=== PATIENT | male | born 1930 | race Caucasian/White ===

== ENCOUNTER 2018-11-01 15:50 | Inpatient (IN) | payer OTHER, BC ==
[~2018-11-01] VITALS: Ht 182.9 cm; Wt 78.9 kg
[2018-11-01 15:51] VITALS: BP 147/72
[2018-11-01 16:04] LABS: URINE BILIRUBIN NEGATIVE (Negative); URINE BLOOD NEGATIVE (Negative); URINE CLARITY CLEAR; URINE COLOR YELLOW; URINE GLUCOSE-RANDOM* NEGATIVE (Negative); URINE KETONES NEGATIVE (Negative); URINE LEUKOCYTES-REFLEX NEGATIVE (Negative); URINE NITRITE-REFLEX NEGATIVE (Negative); URINE PROTEIN (DIPSTICK) NEGATIVE (Negative); URINE SPECIFIC GRAVITY <= 1.005 (1.005-1.035); URINE UROBILINOGEN 0.2 E.U./dl (0.2-1.0)
[2018-11-01 16:12] LABS: ABSOLUTE NEUTROPHILS 5.1 thou/uL (1.4-8.2); BASOPHILS 0.5 % (0.0-2.0); EOSINOPHILS 2.3 % (0.0-3.0); HEMATOCRIT 24.1 % (42.0-52.0); HEMOGLOBIN 7.9 gm/dL (14.0-18.0); LYMPHOCYTES 21.4 % (24.0-44.0); MCH 34.7 pg (26.0-34.0); MCHC 32.6 g/dL (28.0-37.0); MCV 106.4 fL (80.0-100.0); MONOCYTES 10.6 % (1.0-8.0); PLATELET COUNT 369 thou/uL (150-400); POLYS 65.2 % (36.0-66.0); RBC 2.27 mil/uL (4.50-6.00); RDW 16.4 % (10.5-14.5); WBC 7.8 thou/uL (4.0-11.0)
[2018-11-01 16:20] LABS: CALCIUM 8.7 mg/dL (8.5-10.1); CREATININE 1.1 mg/dL (0.7-1.3); POTASSIUM 4.3 mmol/L (3.5-5.1)
[2018-11-01 16:26] LABS: ALBUMIN 2.9 g/dL (3.4-5.0); TOTAL BILIRUBIN 1.1 mg/dL (<0.1-1.0); TOTAL PROTEIN 6.2 g/dL (6.4-8.2)
[2018-11-01 19:51] LABS: HEMATOCRIT 21.4 % (42.0-52.0); HEMOGLOBIN 7.2 gm/dL (14.0-18.0)
[2018-11-01 20:19] VITALS: BP 99/54
[2018-11-01 20:28] VITALS: BP 147/72
[2018-11-01 21:21] VITALS: BP 111/61
[2018-11-01 21:36] VITALS: BP 105/42; BP 114/63
[2018-11-01 22:18] LABS: TSH 3.887 uIU/mL (0.358-3.740)
[2018-11-01] MEDS ORDERED: LANTUS100 UNIT/M SUBQ (22:20)
[2018-11-01] MEDS ORDERED: TRADJENTA5 MG PO (22:21)
[2018-11-01] MEDS ORDERED: NAMENDA 5 MG TAB5 M1 PO (22:22)
[2018-11-01] MEDS ORDERED: SYNTHROID112 MC1 PO (23:10)
[2018-11-01] MEDS ORDERED: VITAMIN D2000 UNIT PO (23:11)
[2018-11-01] MEDS ORDERED: QUETIAPINE FUM100 MG PO (23:12)
[2018-11-02 06:04] LABS: HEMATOCRIT 25.9 % (42.0-52.0); HEMOGLOBIN 8.7 gm/dL (14.0-18.0); MCH 33.9 pg (26.0-34.0); MCHC 33.4 g/dL (28.0-37.0); MCV 101.7 fL (80.0-100.0); RBC 2.55 mil/uL (4.50-6.00); RDW 19.4 % (10.5-14.5); WBC 6.6 thou/uL (4.0-11.0)
[2018-11-02 06:16] LABS: CALCIUM 8.6 mg/dL (8.5-10.1); CREATININE 0.9 mg/dL (0.7-1.3); POTASSIUM 3.9 mmol/L (3.5-5.1)
--- NOTE | 2018-11-02 08:29 | NUR ---
PROGRESS PT AGITSTED AND HITTING STAFF, INCONTINENT OF URINE AND BOWEL CLEANED WITHOUT DIFFICULTY. IVF'S INFUSING ORDERED, TELE INTACT, PT KEEPS REMOVING LEADS, FALL PRECAUTIONS IN PLACE UP WITH ASSIST ONLY CONTINUE POC.
[2018-11-02 08:30] VITALS: BP 107/74
[2018-11-02 10:06] LABS: GLYCOHEMOGLOBIN (HGB A1C) 5.4 % (4.8-5.6)
[2018-11-02 16:15] VITALS: BP 128/65
--- NOTE | 2018-11-02 18:51 | NUR ---
ASSUMED CARE OF PT AT APPROX 0700. PT IS ALERT, NOT ORIENTED, COMBATIVE, AND HARD TO REDIRECT. PT HAS SITTER IN ROOM FOR SAFETY. MONITORED ON TELE ALTHOUGH PT CONITUES TO PULL TELE OFF VERY OFTEN. CALLED DOCTOR TO ASK FOR DC OF TELE. RECIEVED ORDER FOR TELE DC. ASSESMENT CHARTED. PT LEFT UNIT FOR GI PROCEDURE, PULLED IV OUT AND GI REPLACED IV IN GI LAB. RETURN TO ROOM ALERT, VSS. FAMILY HAS BEEN UPDATED ON POC. PT WAS ABLE TO EAT IN EVENING AND TOLERATED VERY WELL. MAKING SLOW PROGRESS TOWARDS POC GOALS. WILL CONT TO MONITOR.
[2018-11-02 20:10] VITALS: BP 148/75
--- NOTE | 2018-11-03 02:26 | NUR ---
care assumed at 1900 patient was in bed agitated, kicking staff and cursing family members. patient has a sitter d/t fall risk and impulsive behaviour. prn haldol given per order. patient sleeping on and off this shift, no agitation at this time. patient incontinent pericare and barrier cream applied as needed. no s/s of pain or discomfort. bruise noted on left hand. patient in bed asleep at this time breathing regular and unlaboured.
[2018-11-03 03:33] VITALS: BP 129/79
[2018-11-03 05:39] LABS: % SATURATION 33 % (20-39); IRON 61 ug/dL (65-175); TIBC 184 ug/dL (250-450)
[2018-11-03 08:02] VITALS: BP 124/86
[2018-11-03 10:11] LABS: HEMOGLOBIN 8.7 gm/dL (14.0-18.0)
[2018-11-03] MEDS ORDERED: PROTONIX40 M1 PO (13:58)
[2018-11-03] MEDS ORDERED: NOVOLOG100 UNIT/1 SUBQ (13:58)
--- NOTE | 2018-11-03 14:04 | NUR ---
PT ADMITTED RELATED TO WEAKNESS AND ANEMIA. CM REVIEWED CHART AND SPOKE WITH CARE TEAM. CM CALLED PT'S SON/DPOA AND LEFT A VOICMAIL. BASED ON RECORD REVIEW PT RESIDES IN A HOUSE WITH HIS WITH 24/7 CAREGIVERS. CHART INDICATED THAT PT IS BASICALLY BED/CHAIR BOUND. CHART INDICATED THAT PT IS MAX ASSIST FOR TRANSFERS AND IS TOTAL ASSIST FOR ADLS. PLAN IS FOR PT TO GO TO [facility]. IT IS ANTIPATED THAT PT PT WILL BE MEDICALLY STABLE TO DC THERE THIS DAY. CM TO FOLLOWAS INDICATED WITH DC PLANNING.
--- NOTE | 2018-11-03 14:06 | PATH ---
[facility] [address] [place] [address] PATHOLOGY RPT PROCEDURE Name: SATHISHBILLIE Room #: 451-P ADM IN M.R.#: [id number] ������������������ Admission: 11/01/18 ������������������ Date of : [birth year]03/[birth year] Discharge: Report #: [id number] Path Case #: [id number] [facility] Accession Number: [id number] . 01 Material submitted: . stomach - BX OF ANTRUM R/O H. PYLORI . 01 Clinical history: . Pre-OP DX: GI bleed Post-OP DX: Gastritis, duodenal bulb ulcer . 02 Diagnosis: Gastric mucosa, antrum R/O H. pylori, endoscopic biopsy: - Mild chronic inflammation. - Negative for intestinal metaplasia or atrophy. - Negative for Helicobacter pylori (properly controlled immunohistochemical stain performed). . (IUV:tanvir; 11/03/2018) QMS/11/03/2018 . 02 Electronically signed: . Shannan Hutchinson MD, Pathologist NPI- [id number] . 01 Gross description: . Received in formalin labeled "Billie Wolf, BX antrum, rule out H. pylori," are 2 segments of cuevas soft tissue measuring 0.9 x 0.3 x 0.2 cm in aggregate dimensions and ranging from 0.4 to 0.5 cm in maximum dimension. The specimen is submitted entirely in cassette A1. (TSD; 11/02/2018) TOB/TOB . 02 Pathologist provided ICD-10: K29.50 . 02 CPT . 021002, Q28690 Specimen Comment: A courtesy copy of this report has been sent to Specimen Comment: [phone], . Specimen Comment: Report sent to / DR GONZALES Performed at: [address] [id number] MD Lawrence Jenkins MD Phone: [phone] Performed at: [address] [address] PATHOLOGY RPT PROCEDURE Name: BILLIE WOLF Room #: 451-P ADM IN M.R.#: [id number] ������������������ Admission: 11/01/18 ������������������ Date of : [birth year]/03/[birth year] Discharge: Report #: [id number] Path Case #: [id number] [address] [place] [id number] MD Shannan Hutchinson MD Phone: [phone]
[2018-11-03 15:08] VITALS: BP 110/72
--- NOTE | 2018-11-03 18:27 | NUR ---
ASSUMED CARE OF PT AT APPROX 0700. PT IS ALERT, NOT ORIENTED. VSS, DENIES PAIN AND IS ABLE TO MAINTAIN 02 SAT >90 ON RA. PT IS COMBATIVE AT TIMES SITTER IS IN ROOM WITH PATIENT. FAMILY HAS BEEN UPDATED ON DISCHARGE OF PT TO [facility] AND ARE IN AGREEMENT WITH NO FURTHER CONCERNS AT THIS TIME. REPORT CALLED TO RONNIE ON 5S. PT TRANSPORTED IN BED. PT HAS MET POC OF DC TO APPROPRIATE LEVEL OF CARE.
== END 2018-11-03 16:00 | DRG 377 ==
LOC: ER 15:50 → 4W 18:51 → EROBS 18:51 → 4W 20:30
PROVIDERS: Internal Medicine Gastroenterology; Nurse Practitioner; Physician Assistant; Student in an Organized Health Care Education/Training Program; ADMIT Internal Medicine
PROC: 30233N1 Transfusion of Nonautologous Red Blood Cells into Peripheral Vein, Percutaneous Approach (ICD-10-PCS; principal; 2018-11-01)
PROC: 0DB68ZX Excision of Stomach, Via Natural or Artificial Opening Endoscopic, Diagnostic (ICD-10-PCS; 2018-11-02)
DX: K29.71 Gastritis, unspecified, with bleeding (principal); R53.2 Functional quadriplegia; D62 Acute posthemorrhagic anemia; F03.91 Unspecified dementia, unspecified severity, with behavioral disturbance; K26.9 Duodenal ulcer, unspecified as acute or chronic, without hemorrhage or perforation; E11.9 Type 2 diabetes mellitus without complications; E03.9 Hypothyroidism, unspecified; Z79.899 Other long term (current) drug therapy
CPT/HCPCS: 10045; 10047; 62110; 62900; 70005

== ENCOUNTER 2018-11-03 14:32 | Inpatient (IN) | payer OTHER, BC ==
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
[~2018-11-03 14:32] MED LIST: LANTUS100 UNIT/M SUBQ; NAMENDA 5 MG TAB5 M1 PO; NOVOLOG100 UNIT/1 SUBQ; PROTONIX40 M1 PO; QUETIAPINE FUM100 MG PO; SYNTHROID112 MC1 PO; TRADJENTA5 MG PO; VITAMIN D2000 UNIT PO
[2018-11-03 17:33] VITALS: BP 124/77
--- NOTE | 2018-11-03 17:45 | NUR ---
PATIENT ADMITTED FROM , ORDERS DR. HERRERA, FOR CONFUSION, DEPRESSION. TRANSPORTED BY 4W SITTER ACCOMPANYING PATIENT. HISTORY OF LEWEY BODY DEMENTIA, HYPOTHROIDISM FOLLOWING A THYROIDECTOMY, HISTORY OF FALLS. ORIENTED ONLY TO SELF. PATIENT'S SON, PRAVIN, IS DPOA. ARRIVED AT THIS TIME TO SIGN PATIENT IN FOR TREATMENT.
--- NOTE | 2018-11-03 19:51 | NUR ---
PATIENT'S SON, PRAVIN BOWER, CONTACTED BY PHONE, WHO CONFIRMED VERBALLY TO THIS NURSE AND Tamanna LI, THAT HIS FATHER, BLILIE BOWER, IS A DO NOT RESUSICATE. HE IS UNABLE TO BRING IN PAPERWORK UNTIL TOMORROW.
--- NOTE | 2018-11-03 20:11 | NUR ---
ASSUMED CARE OF PT @ 19:15. IN ROOM IN BED WITH ONE ON ONE SITTER. HRRR, LUNGS CTA ALL HERNANDEZ, ABD NORMOACTIVE. ORIENTED TO SELF ONLY. SITTER REPORTS HE HAS BEEN CURSING. WILL CONTINUE TO MONITOR.
--- NOTE | 2018-11-03 21:39 | NUR ---
TOOK 2100 MEDS WITH HUDSON. WEARING A BRIEF, BUT PULLS IT BACK AND URINATES ON HIS BED. COMBATITIVE WITH STAFF INCONTINENT CARE PROVIDED. ONE ON ONE CARE CONTINUES.
--- NOTE | 2018-11-04 00:19 | NUR ---
NEW ORDER FOR LINAGLIPTIN 5 MG @0900, CODE STATUS: NO CODE, BLOOD GLUCOSE MONITOR AC/HS.
--- NOTE | 2018-11-04 06:37 | NUR ---
slept 0 hours noc.
[2018-11-04 07:00] VITALS: BP 118/77
--- NOTE | 2018-11-04 09:37 | NUR ---
ASSUMED CARE OF PT APPROX 0715, SITTER PRESENT, PT AT FIRST COMBATIVE AND HITTING OUT, WITH HELP OF THREE OTHERS PT CLEANED UP AND DRESSED, CHANGED, RASH NOTED ON INNER GROIN BETWEEN LEGS, APPLIED COPIOUS AMOUNTS OF BARRIER CREAM, WILL GIVE PHYSICIAN INFO TO SEE IF FURTHER ORDERS NEEDED. BECAME VERY PLEASANT AFTER SET UP IN W/C, REFUSED MEDS THEN ALLOWED ONE IN HIS APPLESAUCE. MENTIONED WANTING COOKIES AND TO WATCH TELEVISION. WILL CONTINUE TO MONITOR
--- NOTE | 2018-11-04 13:32 | NUR ---
pt becoming agitated, and trying to get up out of his chair, another rn pulled off the floor w/casino duty manager. assured pt we'd go back to his room after the return of his sitter after lunch. he is strong and he grabbed this nurses hand roughly. pulled away yet still close enough to keep safe
--- NOTE | 2018-11-04 20:01 | NUR ---
ASSUMED CARE @ 19:15. IN BED SITTER 1 ONE 1 AT BEDSIDE. AWAKE COOPERATED WITH ASSESSMENT. HRRR, LUNGS DIMINISHED, ABD NORMOACTIVE. WILL CONTINUE TO MONITOR.
--- NOTE | 2018-11-04 23:08 | H ---
[facility] [place] [address] HISTORY AND PHYSICAL Name: SATHISHBILLIE Room #: 525B-B ADM IN M.R.#: [id number] Admission: 11/03/18 ������������������ Attend Phys: Ky Newman DO Discharge: ������������������ Date of : [birth year]03/[birth year] Report #: [id number] THIS REPORT FOR: //name// CC: Ky Newman NO PCP DATE OF SERVICE: 11/03/2018 GERIATRIC PSYCHIATRY EVALUATION SOURCES: Emergency Room records as well as hospitalist's documentation from his medical admission, as well as a bedside interview with the patient today. 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 The patient has an existing major neurocognitive disorder. Apparently, the patient has been agitated, hitting his head, and is difficult to manage. I believe the patient's primary care physician is the OIL PROCESSING TECHNICIAN at [facility]. In any event, his son had been in touch with his primary care physician who referred him to the [facility] here at [place]. The patient had a recent medical admission at the end of September, which was for a hyperosmotic nonketotic syndrome, new-onset diabetes mellitus, and dehydration. The patient was successfully treated and his hemoglobin was 13.1 in [facility]. Unfortunately, he was actually brought to the ED for medical clearance for Geriatric Psychiatry, initial hemoglobin was 7.9, repeat was 7.2. Apparently, the son reported that the patient was incontinent of large stool last evening and he did feel it was very dark. The son reports no history of GI bleed; reports prior abdominal surgeries and cholecystectomy, in the past 2 years had a colonoscopy, polyps noted, but were not removed secondary to age and comorbid conditions. The patient was started on a Protonix drip, 2 units of packed red blood cells had been ordered, and GI was consulted. The patient is alert only to himself. The patient has normal incontinence of bowel and bladder. The patient invariably feeds himself with total assistance for ADLs. The patient underwent an EGD, I believe, yesterday by Dr. Bravo. There was a single nonbleeding duodenal bulb ulcer size 5 mm without a visible vessel. There is prepyloric erythema, biopsy agrees with pathology, specks of coffee-ground in the stomach would suggest blood, normal esophagus. Recommended Protonix 40 mg daily for 8 weeks. Avoid aspirin, Aleve, ibuprofen, and NSAIDs. Diet as tolerated. REVIEW OF SYSTEMS: Not possible with this patient due to the severity of his dementia. SOCIAL HISTORY: Unlikely smoking tobacco or alcohol history. PHYSICAL EXAMINATION: Deferred to the hospitalist. [address] [address] HISTORY AND PHYSICAL Name: MARISA BOWERLIL Room #: 525B-B ADM IN M.R.#: [id number] Admission: 11/03/18 ������������������ Attend Phys: Ky Newman DO Discharge: ������������������ Date of : [birth year] Report #: [id number] PAST MEDICAL HISTORY: Includes type 2 diabetes mellitus, hypothyroidism, and functional quadriplegia. LABORATORY DATA: Most recent are: Hematology on 11/03/2018, H and H 8.7 and 26.0. White count on was 6.6. Platelet count 348. Chemistries on the showed sodium 139, potassium 3.9, chloride 105, bicarbonate 25, BUN 14, estimated GFR is 79, glucose 156. Hemoglobin A1c 5.4, calcium 8.6. Iron 61, TIBC 184, ferritin 557 which was high. The low iron and low TIBC are consistent with blood loss anemia. AST 29, ALT 22, alkaline phosphatase 117, total protein 6.2. Vitamin B12 high, albumin 2.9, vitamin D 33.4. Folate 17.7, TSH 3.887, which is slightly high, although not materially. Urinalysis was negative. No neuro imaging was done. PHYSICAL EXAMINATION: VITAL SIGNS TODAY: Temperature 35.7 Celsius, respirations 16, BP 124/77, O2 sat 99%. MUSCULOSKELETAL: Nonambulatory in bed. MENTAL STATUS: This is a well-developed, slightly disheveled male, in the hospital gown, slightly elevated in his bed. Attention impaired. Concentration impaired. Speech loud, nonsensical at times. Some psychomotor agitation, no psychomotor retardation. Thought process linear, limited. Thought content: The patient exhibited some echopraxia and then he did extend his middle finger to me. Did not have obvious external stimuli, but would not tolerate questioning. Insight limited. Judgment impaired. Fund of knowledge well below baseline. FORMULATION: An 88-year-old male admitted for major neurocognitive disorder with behaviors including resistance with care. PLAN: Evaluate, stabilize, and obtain collateral. MEDICATIONS: Currently will be given Protonix 40 mg p.o. daily, Tradjenta 5 mg p.o. daily for diabetes, levothyroxine 112 mcg p.o. daily, mirtazapine given at night 7.5 mg at 2100 for sleep and appetite. Depakote will be starting DR 250 mg p.o. b.i.d. ESTIMATED LENGTH OF STAY: 10-14 days. We will watch his GI status. Monitor for additional blood loss. I will continue one to one for now. STRENGTHS: He is insured. [facility] [address] [place] [address] HISTORY AND PHYSICAL Name: BILLIE BOWER Room #: 525B-B ADM IN M.R.#: [id number] Admission: 11/03/18 ������������������ Attend Phys: Ky Newman DO Discharge: ������������������ Date of : [birth year]/03/[birth year] Report #: [id number] WEAKNESSES: Advanced age, dementia, and multiple medical comorbidities. ��������������������������������������������� <ELECTRONICALLY SIGNED> ���������������������������������������� By: Ky Newman DO ��������������������������������������������� 11/04/18 2308 [id number] 0048 Ky Newman DO /nt
--- NOTE | 2018-11-05 05:16 | NUR ---
PROVIDED TRAZADONE 25 PO FOR SLEEP, AND 1 HOUR FOLLOW UP, PT STILL NOT SLEEPING SO 1 HOUR FOLLOW UP GIVEN. PT SLEPT SOME AND AWOKENED SOME THROUGHOUT THE NOC.
--- NOTE | 2018-11-05 06:26 | NUR ---
SLEPT 1.6 HOURS.
--- NOTE | 2018-11-05 06:29 | NUR ---
WOUND ON POSTERIOR LEFT HAND IS C/D/I. BANDAIDS ON R ARM COVERING SNALL SKIN ABRASIONS. REPLACED WITH FRESH BANDAIDS.
[2018-11-05 07:30] VITALS: BP 114/73
[2018-11-05 08:00] VITALS: BP 114/73
--- NOTE | 2018-11-05 08:40 | NUR ---
PT ASSISTED TO W/C THIS AM X2 STAFF. PT ABLE TO STAND ON HIS FEET WHEN PROMPT. PT LUNGS CLEAR, HEART BEAT IRREGULAR, PT CAN FEED SELF WITH ENCOURAGEMENT. PT DIDN'T WANT TO TAKE MEDS THIS AM. PLACED INTO APPLESAUCE. PT HAS SKIN TEAR TO TOP OF LEFT HAND. SON CAME THIS AM FOR 5 MIN. TOOK OFF HIS FREE STYLE GLUCOMETER TO LEFT UPPER ARM.
--- NOTE | 2018-11-05 09:45 | NUR ---
PT BACK TO BED WITH ASSIST X2 PERSONS. PT DIDN'T WANT TO BE TOUCHED WHEN IN BED. TRYING TO PUT CREAM TO PER-AREA. PT PUSHED NURSE ARM AWAY. PT STILL HAS 1:1.
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
--- NOTE | 2018-11-05 15:42 | NUR ---
PT TRYING TO STAND UP IN W/C AT TABLE. PT STATED HIS BACK HURTING. ATTEMPTED TO ADM TYLENOL AND VIT D CRUSHED IN YOGART. PT REFUSED TO TAKE EVEN WHEN TOLD IT WAS TYLENOL.
--- NOTE | 2018-11-05 16:24 | NUR ---
PT ALLOWED AUTOMATIC CHIEF TO TAKE BLOOD SUGAR FOR EVENING CHECK. PT STATING HE WOULD LIKE SOMEONE TO TAKE HIM TO THE LIBARY.
--- NOTE | 2018-11-05 17:30 | NUR ---
CHANGED DRESSING TO LEFT HAND. PT TOLERATED WELL, NO BEHAVIORS NOTED. CLEANED SKIN TEAR AND PLACED VASELINE GAUZE OVER SKIN TEAR AND COVERED WITH TEGADERM.
--- NOTE | 2018-11-05 17:40 | NUR ---
GOT PT BACK TO BED X2 ASSIST. PT WAS NOT COMBATIVE AT THIS TIME. PT HAD SMEAR OF BM, CLEANED UP AND PUT INTO BED. PT TOLERATED ACTIVITY.
[2018-11-05 19:45] VITALS: BP 117/29
--- NOTE | 2018-11-05 21:24 | NUR ---
ASSUMED CARE OF THE PT AT 191 PM. MAKES NEEDS KNOWN. TAKES HIS MEDICATION CRUSHED IN ICE CREAM. DENIES SI/HI, ANXIETY AND DEPRESSION, DENIES A/V HALLUNICATIONS. REMAINS ON 12 MINUTE CHECKS FOR HIS SAFETY.
--- NOTE | 2018-11-06 03:20 | NUR ---
THE PT TRIED TO CLIMB OUT OF BED X 1. ASSISTED BACK UP IN THE BED. DENIES PAIN AT THIS TIME. REMAINS ON 12 MINUTE CHECKS FOR HIS SAFETY.
[2018-11-06 08:00] VITALS: BP 108/60
--- NOTE | 2018-11-06 08:00 | NUR ---
GETTING PT UP OUT OF BED THIS AM X2 ASSIST. PT SLAPPING AND GRABBING AT STAFF. HAD TO HOLD DOWN HANDS IN ORDER TO HELP GET BRIEF ON. INCON OF URINE. PT STATED MIMI MOMMA. ENCOURAGED PT TO EAT BREAKFAST. PT UP TO W/C WITH GAIT BELT. PT ABLE TO STAND WITH STAND-BY ASSIST.
[2018-11-06 08:30] VITALS: BP 108/60
--- NOTE | 2018-11-06 11:25 | NUR ---
PT SITTING IN DINNING ROOM. PT HS BEEN TRYING TO GET UP OUT OF W/C. PT STATED HE NEEDED TO GO. PT SITTING STILL AT THIS TIME.
--- NOTE | 2018-11-06 15:25 | NUR ---
PT WAS INCON. OF STOOL IN BED. PT PHYSICAL HITTING NURSE AND PLATE MOUNTER. PT TRYING TO BITE WHILE GETTING CLEANED UP. PT STATED HE WILL HELP WITH SITTING UP AND HE PROMISED. PT DID STAND AND GET INTO W/C WITH SOME GUIDANCE.
--- NOTE | 2018-11-06 15:30 | NUR ---
NOTICED THAT PT HAD TAKEN OFF LEFT HAND BANDAGE.
--- NOTE | 2018-11-06 17:30 | NUR ---
SON PRAVIN CAME TO VISIT TODAY ASKING HOW HIS DAD HAS BEHAVIED TODAY. SON STATED THAT HE LOOKS LIKE HE HAS IMPROVED ON HIS AGGRESSION. ASKING IF PT IS GOING TO GO HOME WHEN HE DISCHARGED, SON STATED THAT HE WANTS HIM TO STAY HERE A BIT MORE SINCE HE IS DOING BETTER, STATES HE WOULD LIKE TO TAKE HIM HOME IF HE CAN.
[2018-11-06 20:14] VITALS: BP 90/57
[2018-11-07 00:45] VITALS: BP 90/57
--- NOTE | 2018-11-07 03:49 | NUR ---
ASSUMED CARE @ 19:15. UP IN W/C IN THE DAY ROOM. ALLOWED ASSESSMENT AND VS TO BE TAKEN. TOOK MEDS CRUSHED IN PUDDING, TRANSFERRED TO BED, INCONTINENT CARE PROVIDED, NYSTATIN APPLIED TO GROIN. RESTLESS IN BED. PUT FEET OUT OF THE BED OFTEN, RETURNED TO BED AND COVERED UP, THEN REPEATED. WILL CONTINUE 12 MINUTE ROUNDING FOR SAFETY.
--- NOTE | 2018-11-07 05:57 | NUR ---
SLEPT 4.6 HOURS NOC.
[2018-11-07 07:40] VITALS: BP 111/67
--- NOTE | 2018-11-07 10:28 | NUR ---
ASSUMED PATIENT CARE AT 0715. PATIENT IN BED, RIGHT-SIDE POSITION. ASSISTED UP WITH THIS NURSE AND TUNNEL HEADING INSPECTOR. PATIENT HIT HIS HAND, APPERENTLY ON SIDE OF W/C, WHILE BEING TRANFERRED TO W/C. NURSE CLEANSED WITH WOUND CLEANSER, STERI-STRIPS APPLIED TO SKIN TEAR. UP FOR BREAKFAST, ATE 50% OF MEAL. DID NOT REMAIN IN R.T. GROUP, WHEELED HIMSELF TO TABLE NEXT TO WINDOW. PATIENT CALLED THIS NURSE "MOM" DURING A.M. GOALS GROUP, ASKED NURSE TO STAY SEATED RIGHT BESIDE, HELD NURSE'S HAND FOR SEVERAL MINUTES. LAID DOWN IN BED AT THIS TIME FOR NAP BEFORE LUNCH.
[2018-11-07 19:34] VITALS: BP 96/62
--- NOTE | 2018-11-07 21:39 | NUR ---
ASSUMED CARE OF THE PT AT 1915PM. ALERT ET CONFUSED AT THIS TIME. THE PT TAKES HIS HS MEDICATIONS CRUSHED IN PUDDING, WHICH HE DID THIS EVENING. TRIED TO HIT AND PUNCH STAFF WHEN MOVING HIM UP IN THE BED. DENIES SI, HI, A/V HALLUNICATIONS. DENIES ANXITEY AND DEPRESSION. REMAINS ON 12 MINUTE CHECKS FOR HIS SAFETY.
--- NOTE | 2018-11-08 07:00 | NUR ---
the pt slept 10.0 hours last night.
[2018-11-08 08:00] VITALS: BP 121/67
--- NOTE | 2018-11-08 08:30 | NUR ---
PT UP TO / X2 STAFF. PT WAS HITTING AND BITTING AT STAFF. PT WAS INCON. OF URINE IN BED. PT LUNGS CLEAR. PT KEEP SAYING MOMMA NOVEMBER, AND GOOD NIGHT MOMMA. PT TOLERATED TRANSFER TO [facility], WAS HITTING WHILE SITTING IN /.
--- NOTE | 2018-11-08 17:13 | NUR ---
ALEJANDRA and Dr. Newman met with pt son Dr. Gonzáles concerning pt care and wellbeing. Eliecer stated that his father is needing more care at this time. Eliecer mention that he has being living off and on with the last 3 years with his parents. He mention that it starting to take effect on his home, and health. Dr. gonzáles mention that his mother is an skilled facility, and she does not want to live a [place]. However, he realized that his father is requiring more assistance. He asked if a referral can be sent to [facility]. ALEJANDRA sent a referral to Donna Birch on the fax number [phone]. ALEJANDRA will follow-up with the son October.
--- NOTE | 2018-11-08 17:29 | NUR ---
PT REFUSED TO HAVE BLOOD SUGAR TAKEN, KEPT PULLING ARM AWAY AFTER GETTING PRICKED WITH LANCET.
--- NOTE | 2018-11-08 17:45 | NUR ---
GOT FINGERSTICK, PT DIDN'T WANT THIS NURSE TO POKE WITH LANCET. FS 79, ENCOURAGED PT TO DRINK ENSURE DRINK.
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
[2018-11-08 20:04] VITALS: BP 101/57
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
--- NOTE | 2018-11-09 09:49 | NUR ---
ATE BREAKFAST IN DINNING ROOM. ORIENTED TO NAME ONLY. TOOK PILLS WHOLE WITH ENSURE. AT 100% OF MEAL AND FED SELF. IN WHEELCHAIR WITH LAP BELT ON FOR SAFETY. STAYED IN DINNING ROOM FOR AM GROUPS BUT DID NOT PARTICIIPATE.
[2018-11-09 19:33] VITALS: BP 107/70
--- NOTE | 2018-11-09 22:19 | NUR ---
NURSES NOTE - PATIENT IS IN BED UPON ASSESSMENT, EYES OPEN AND MAKING GOOD CONTACT WITH THIS NURSE. SPEECH WAS DIFFICULT AND MUFFLED AT TIMES TO UNDERSTAND RELATED TO PATIENT KEEP HIS MOUTH UNDERNEATH A BLANKET. HE APPEARS DISHEVELED AND THIS NURSE ENCOURAGED ADLS BUT PATIENT REFUSED. HE WAS ABLE TO DENY SI HI SH AND HALLUCINATIONS. PATIENT WOULD NOT FURTHER ELABORATE, BUT DID NOT APPEAR IN MEDICAL DISTRESS. PATIENT TOOK MEDICATION WITH YOGURT AND CRUSHED MEDS. HE DID NOT REPORT A LAST BM. DURING REASSESSMENT PATIENT WAS IN BED WITH EYES CLOSED, RR EVEN AND UNLABORED. WILL CONTINUE ROUNDS TO ENSURE SAFETY OF THE PATIENT AT ALL TIMES.
--- NOTE | 2018-11-10 01:15 | NUR ---
ASSUMED CARE AT 2300, PT HAS BEEN RESTING/SLEEPING SOUNDLY, ROUNDING DONE EVERY 12 MINUTES, MONITORED.
--- NOTE | 2018-11-10 04:58 | NUR ---
PT RESTED GOOD, AWAKE AT THIS TIME, HAD BM, STYLE ADVISOR ASSISTED IN CLEANING HIM, GIVEN AM MEDS AND TOOK THEM WITH NO ISSUES, WAS SWEET AT FIRST THEN TOLD THIS NURSE "GET OUT OF HERE", ABLE TO TURN/REPOSITION SELF, MONITORED.
--- NOTE | 2018-11-10 11:37 | NUR ---
Weekly Recreational Therapy Progress Note Date of Admission: 11/03/18 Date of Activity Therapy Assessment: 11/06/18 Activity Goal: Increase socialization Initial Goal: 1 Individual activity/day Weekly progress towards goal: Did not achieve goals Group participation level: Needs some assistance Behaviors observed: Pt has not participated in structured groups. Andrés has become combative with staff and at times reaches out for peers. Pt is also noted to disrobe in shared patient areas. Disoriented and unfocused when 1:1 attempts are made. Plan: No change towards goal
[2018-11-10 14:52] VITALS: BP 102/62
--- NOTE | 2018-11-10 17:54 | NUR ---
SPIT AM MEDICATIONS OUT AFTER SWALLOWING APPROX. 2 BITES OF CRUSHED AM MEDICATIONS MIXED WIRH PUDDING-COMBATIVE WITH CARES HITTING,ATTEMPTING TO BITE AND KICK NURSING STAFF. NOTED MOOD LABILITY. INCONTINENT OF STOOL X 4 THIS SHIFT-AND DISPLAYS SIGNIFICANT AGITATION AND COMBATIVENESS WITH BRIEF CHANGE AND PERINEAL CARE. APPETITE IS POOR- WILL TAKE SIPS OF FLUIDS WITH REPEATED APPROACHES AND PROMPTING.UP APPROX 2-3 HOURS THIS AM IN DAYROOM IS CONSTANTLY REMOVING CLOTHING-PUSHING AGAINST TABLE TIPPING WHEELCHAIR BACK YELLING OUT "MAMA NOVEMBER, MAMA NOVEMBER"DOES REST IN BED FOR LONG INTERVALS THIS PM AND REPORTS FEELING "TIRED" "LET ME SLEEP" TOOK PM MEDICATIONS WHOLE AFTER SEVERAL APPROACHES-ATTEMPTING TO BITE THIS NURSES FINGER WHEN PILLS PLACED IN MOUTH
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
--- NOTE | 2018-11-10 21:30 | NUR ---
ASSUMED CARE @ 19:15. IN BED AWAKE, ORIENTED TO SELF ONLY. RESPONDS TO SON'S NAME, CONFUSION AND AGITATION NOTED. ALLOWED THIS NURSE TO LISTEN TO LUNG (CTA) AND HEART SOUNDS HRRR. FOUGHT STAFF WHEN ATTEMPTED TO ASSESS B/P. TOOK 2100 MEDS IN ICE CREAM. REQUESTED AND DRANK WATER. INCONTINENT CARE GIVEN AND SHEETS CHANGED. WILL CONTINUE TO MONITOR.
[2018-11-11 03:29] VITALS: BP 102/62
--- NOTE | 2018-11-11 05:50 | NUR ---
Slept well, for a total of 9 hours.
[2018-11-11 07:55] VITALS: BP 130/83
--- NOTE | 2018-11-11 08:46 | NUR ---
PT IS ALERT TO SELF AND CHILDREN'S NAMES, REFUSED MEDS AT FIRST TILL I TOLD HIM HE WAS THE BOSS AND PUT IT IN PUDDING. HE TOOK THEM, REFUSED BG CHECK W/AIDE AND HELD HER HANDS VERY TIGHT. 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 REPORTS OF BM THROUGH THE NIGHT.
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
--- NOTE | 2018-11-11 19:40 | NUR ---
Assumed care @ 19:15. Assement complete. In bed, asked for water and to be covered up. Alert and oriented to self only. Hrrr, Lung sounds CTA, ABD normoactive. will continue to monitor.
[2018-11-11 21:14] VITALS: BP 133/61
--- NOTE | 2018-11-11 22:44 | NUR ---
PATIENTS OUT OF ROOM FOR WEATHER PROTOCOL. RETURNED TO BED AND TOPICAL CREAMS AND MEDICATIONS PROVIDED. INCONTINENT CARE PROVIDED. RESTING QUIETLY.
[2018-11-12 00:27] VITALS: BP 133/61
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
--- NOTE | 2018-11-12 06:42 | NUR ---
SLEPT 7 HOURS.
--- NOTE | 2018-11-12 09:39 | NUR ---
[id number]: Report rec from noc shift, care assumed. Sitting in w/c in DR, pleasant mood, oriented to name. Feeds self with set-up assistance and encouragement. Takes meds crushed in pudding, no difficulty, cooperative with this nurse. Lt hand dsg D/I, no edema or redness noted around site. Attended 09 therapy group, minimal participation due to cognitive impairment, remained calm during group.
[2018-11-12 19:57] VITALS: BP 138/64
--- NOTE | 2018-11-13 00:17 | NUR ---
ASSUMED CARE OF THE PT AT 1915PM. ALERT ET CONFUSED AT TIMES, IS ALWAYS CALLING OUT, STATED TO THIS RETAIL PERFORMANCE SPECIALIST, "HEKAUSHIK Schmidt." TAKES HIS MEDICATIONS CRUSHED IN APPLESAUCE. HE WAS LYING ON HIS LEFT SIDE WHEN THIS RETAIL PERFORMANCE SPECIALIST GAVE HIM HIS MEDICATIONS, WHICH HE TOOK ALL OF THEM. REMAINS ON 12 MINUTE CHECKS FOR HIS SAFETY.
--- NOTE | 2018-11-13 12:09 | NUR ---
ASSUMED PATIENT CARE AT 0700. PATIENT ASSISTED UP TO D.R. X 2 STAFF. REMAINS SOMEWHAT COMBATIVE WITH ADL'S. COMPLIANT WITH MEDS, CRUSHED AND IN APPLESAUCE. FLAT AFFECT, NO BEHAVIORS WITH NURSE, COOPERATIVE MOOD. SPOUSE AND OTHER SON (NOT PRAVIN) HERE FOR 10:45 VISITING HOUR. PATIENT VERY HAPPY WITH SPOUSE BEING AT HIS SIDE.
[2018-11-13 19:43] VITALS: BP 110/71
--- NOTE | 2018-11-13 20:03 | NUR ---
Received report from offgoing shift. Assumed care @ 19:15 in bed, allowed assessment to be complete without physical violence. Oriented to self only. Will assess q 12 minutes for patient safety.
[2018-11-13 23:15] VITALS: BP 110/71
--- NOTE | 2018-11-14 06:06 | NUR ---
Slept 7.2 hours.
[2018-11-14 07:30] VITALS: BP 130/70
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
[2018-11-14 08:20] VITALS: BP 130/70
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
--- NOTE | 2018-11-14 11:30 | NUR ---
HERE WITH SON. PT HAPPY TO SEE HIS . SHE HELPED CLEAN HIS NAILS.
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
--- NOTE | 2018-11-14 17:57 | NUR ---
ADM ZYPREXIA 5MG PO FOR AGGITATION. PT KEEPS SLIDING DOWN FROM CHAIR AND WANTING TO GO BACK TO BED, HITS NURSES.
[2018-11-14 19:40] VITALS: BP 105/48
--- NOTE | 2018-11-15 03:31 | NUR ---
ASSESSMENT: PT REMAIN ALERT AND ORIENT TIMES ONE, CONFUSED TO PLACE, TIME AND SITUATION. DOES TRY TO HIT AT STAFF MEMBERS., ENCOURAGED TO ASSIST WITH TURNS. VSS, AFEBRILE. NEEDS PROMPTS WITH TRANSFERS. INCONTINENT TO BOWEL AND BLADDER TIMES 3. TOLERATING PO INTAKE. REMAIN NO CODE PER ORDERS. FEET DRY, MOISTURIZER APPLIED. COMBATIVE WITH TAKING PILLS. SLOW PROGRESS TOWARDS DC GOALS. WILL CONTINUE TO MONITOR.
--- NOTE | 2018-11-15 06:45 | NUR ---
PT SLEPT FOR 1-1.5 HOURS STARTING AROUND 0530 THIS AM. DID NOT SLEEP WELL AT NIGHT.
--- NOTE | 2018-11-15 09:57 | NUR ---
ASSUMED CARE OF PT AT 0700. ASSESSMENT CHARTED. PT CONFUSED, DISORIENTED TO PLACE, SITUATION, AND TIME. RAMBLING SPEECH NOTED. PT SITTING IN WHEELCHAIR FOR BREAKFAST. PLEASANT UNTIL FSBS TAKEN, PT EXHIBITS TENSE, AGITATED BEHAVIOR. AM MEDS CRUSHED AND GIVEN ORDERED. ROOM AIR. DENIES PAIN. WILL CONTINUE TO MONITOR.
--- NOTE | 2018-11-15 16:36 | NUR ---
ALEJANDRA sent a referral to [facility]. ALEJANDRA will follow-up with the NF concerning if he will be accepted into the facility.
[2018-11-15 19:41] VITALS: BP 116/60
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
--- NOTE | 2018-11-16 06:39 | NUR ---
PATIENT SLEPT 2.4 HOURS OF SLEEP PER MARKETING DESIGNER
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
[2018-11-16 10:56] VITALS: BP 113/74
--- NOTE | 2018-11-16 16:54 | NUR ---
Pt was assessed by Roshan paula [place] to see if he will be appropriate for the [facility].
[2018-11-16 20:37] VITALS: BP 138/58
--- NOTE | 2018-11-17 02:37 | NUR ---
PT RESTED GOOD, EPISODE OF INCONTINENCE, PERICARE PROVIDED, BED ALARM ON, ABLE TO TURN/REPOSITION SELF, ROUNDED ORDERED, MONITORED.
--- NOTE | 2018-11-17 06:08 | NUR ---
PHARMACY HAS QUESTIONS WITH THE SEROQUEL TITRATION ORDERS, NEED CLARIFICATION, WILL PASS THIS ON.
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
--- NOTE | 2018-11-17 13:55 | NUR ---
Recreational Therapy Weekly Progress Note Date of Admission: 11/03/18 Date of Activity Therapy Assessment: 11/05/18 Activity Goal: Increase engagement Initial Goal: 1 Group activity/day Weekly progress towards goal: Did not achieve goals Group participation level: Minimal Behaviors observed: Patient has been present for a minimum of 2 structured groups this week, both times being removed from group d/t being combative or disrobing. Patient also shows this behavior during 1:1 attempts and lacks attention to tasks at hand. Plan: No change towards goal
--- NOTE | 2018-11-17 14:12 | NUR ---
[id number]: Report rec from noc shift, care assumed. Pt resting in bed, awakens slowly to verbal stimuli, resistant to staff to do ADL's, dress and transfer to w/c, hitting staff, cursing, attempting to bite. Trsansferred to w/c x3 staff, pt does stand, legs weak, skin color pale. Incont. of urine, briefs utilized. To DR via w/c, feeds self with set-up assist, appetite good, consumed 75% of meal, takes fluids well, meds given crushed in ice cream. Fungal infection improving to bilat feet, tx in place. Fall risk interventions in place: ID band, yellow socks, bed alarm, gait belt with transfers, freq checks, incont. care and re-assessment.
[2018-11-17 19:49] VITALS: BP 141/50
--- NOTE | 2018-11-18 02:03 | NUR ---
Patient remains 1:1 while awake. Patient has been awake since this nurse assumed care at 1900. Patient has been laying in bed. Patient attempting to kick legs out of bed, slide down out of bed, hit the side of bed. Sitter re-positioned patient several times. Patient took his medications crushed for this nurse in pudding. Patient ate 100% pudding after medications provided. Patient incontinent of bowel and bladder. Checked and changed every 2 hours and PRN. Patient mumbling and restless after medications provided. Patient became more restless and verbally/physically aggressive around 2300. Sitter was covering patient with a blanket when he reached out and scratched arm of sitter. Patient provided PRN Olanzapine po. Patient took medication crushed and drank a cup of water. He immediately then started yelling again. Patient punching side rails, kicking legs over side rails. BUSINESS AND FINANCIAL COUNSEL notified and order obtained for Geodon 5mg IM q6 hours PRN for severe agitation. Patient provided first dose. Patient appears to be resting with eyes closed but is still mumbling and talking to himself.
--- NOTE | 2018-11-18 06:13 | NUR ---
Patient was able to fall asleep at approximately 0600. Patient appears to be resting quietly at this time. Patient has not been to sleep until 0600. 1:1 sitter at bedside at this time. Patient continued to kick, remove clothing and blankets/sheet, mumble, attempt to crawl out of bed until he was able to fall asleep. Patient required constant re-direction throughout the night to maintain safety for resident.
[2018-11-18 07:45] VITALS: BP 101/54
--- NOTE | 2018-11-18 11:24 | NUR ---
SW sent a referral to [facility]. ALEJANDRA will follow-up with NF on November 21, 2018.
--- NOTE | 2018-11-18 11:38 | NUR ---
ALEJANDRA spoke with David Summers that will be accepted into [facility] on November 22, 2018. ALEJANDRA will follow-up with David on November 21, 2018.
--- NOTE | 2018-11-18 12:11 | NUR ---
[id number]: Report rec from noc shift, care assumed. Pt resting supine in bed,resp even/unlabored, skin w/d, color pale, bedrails up x4, fall risk band on, yellow socks on, 1:1 sitter present. Pt awakens slowly to verbal and tactile stimuli, minimal verbalization. Dr. Newman and Dr. Jacobsen here to see pt, 1:1 sitter dc'd, new order for Thorazine 12.5mg po TID, new med order initated @ 1115. here to visit, update and education given to about medications and behavior managment.
[2018-11-18 19:27] VITALS: BP 159/88
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
[2018-11-19 08:00] VITALS: BP 152/81
[2018-11-19 09:17] VITALS: BP 159/88
--- NOTE | 2018-11-19 09:32 | NUR ---
ASSUMED CARE AT 0700 THIS MORNING. STAFF NOTED TO BE CHANGING PT.'S BOTTOM, DON CLEAN CLOTHING. INSTRUCTION PROVIDED BY STAFF THE ENTIRE TIME. PT. CONTINUES TO BE COMBATIVE WITH STAFF, STRIKING OUT AT THEM, CALLING THEM "WHORES", "BITCHES". GOT IN W/C AND TAKEN TO DINING ROOM. ATE WELL. MEDICATIONS CRUSHED AND PUT IN PUDDING. PT. AT THIS WITHOUT PROBLEMS NOTED.
[2018-11-19 19:34] VITALS: BP 145/83
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
--- NOTE | 2018-11-20 06:11 | NUR ---
Patient has been restless through the night which appears baseline for this patient. Patient laying in bed but rocking/kicking his legs frequently. Moaning, mumbling to self. Hours of sleep documented as 7.6 hours. Unknown of accuracy due to frequent movement, even when he is sleeping. Patient checked every 2 hours. Incontinent of bladder. Linens changed and tete care provided. Continues to be aggressive with hitting, kicking and attempting to bite staff when addressing incontinence.
[2018-11-20 07:30] VITALS: BP 137/69
--- NOTE | 2018-11-20 09:06 | NUR ---
ASSUMED CARE AT 0700 THIS MORNING. HE WAS INCONTINENT IN HIS BED AT THE ONSET OF THE SHIFT. THE TWO RN'S WENT IN AND CLEANED UP THE PATIENT AND PUT CLEAN CLOTHES ON HIM. THE WHOLE TIME THE PATIENT WAS ATTEMPTING TO HIT, KICK, BITE STAFF AND WAS CALLING THEM A WHORE, BITCH. HIS SON CALLED AND ASKED IF HE COULD HELP GET PATIENT UP. THIS MEDICAL CLAIMS ANALYST ASKED HIM NOT TO DO THAT AND TO COME BY FOR A COUPLE OF MINUTES ONLY. HE DID COMPLY WITH STAFF WISHES. HE SAID HELLO TO HIS FATHER AND LEFT. THE PATIENT INITIALLY REFUSED HIS MEDICATIONS, BUT WITH SOME PERSUASION HE DID TAKE HIS MEDICATION CRUSHED IN APPLESAUCE.
[2018-11-20 10:15] VITALS: BP 137/69
[2018-11-20 20:37] VITALS: BP 141/83
[2018-11-20 21:45] VITALS: BP 141/83
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
[2018-11-21 05:48] VITALS: BP 163/95
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
--- NOTE | 2018-11-21 06:31 | NUR ---
SLEPT 5 HOURS.
--- NOTE | 2018-11-21 06:44 | NUR ---
pATIENT FOUND ON FLOOR. WHILE DOING MORNING ROUNDS PATIENT'S BED ALARM WENT OFF AND JEN BETH, RN WENT TO TURN OFF AND PATIENT HAD SLID HIMSELF DOWN TO BOTTOM OF BED AND WIGGLED OUT BETWEEN BED RAILS. HE WAS LAYING ON THE FLOOR WITH HIS SHEET AND URINATING. THIS NURSE DID ASSESSMENT AND VITALS WNL. PATIENT COMBATIVE AND TOOK 5 PEOPLE TO GET HIM BACK INTO BED. PATIENT WAS CLEANED UP AND BED WAS CLEANED AND CHANGED. [employer]OCHITL [employer]ell[employer]ARMWORK[employer] FAMILY NOTIFIED. ZYPREXA 5MG PRN GIVEN TO PATIENT WHEN UNABLE TO CALM PATIENT. ONE HOUR POST FALL VITALS ARE 135/73 P88 R 18 T 96.0 02%95 RA. PLAN OF CARE ADD ON OF HIGH RISK FALL PROTOCOL. ADULT SCHOOL TEACHER YONG NOTIFIED. NO INJURIES FOUND ON ASSESSMENT.
[2018-11-21 06:45] VITALS: BP 135/73
[2018-11-21 07:45] VITALS: BP 133/81
--- NOTE | 2018-11-21 11:10 | NUR ---
ASSUMED PATIENT CARE AT 0715. ASSISTED UP FOR [facility] PER STAFF TIMES 2. ATE BREAKFAST PER SELF. PATIENT CONSTANTLY SLIDES DOWN IN W/C, MONITORED BY STAFF FOR SAFETY. PULLED UP BY STAFF SEVERAL TIMES THIS A.M. -PATIENT GRABS AND HOLDS ON TO STAFF'S ARMS, ATTEMPTED TO BITE THIS NURSE TWO TIMES DURING ONE TIME OF PULLING UP IN W/C. MEDICATIONS CRUSHED, PLACED IN YOGURT. PATIENT TOOK ENTIRE YOGURT CUP, ATE ALL WITH HIS MEDICATIONS IN YOGURT.
[2018-11-21 15:29] VITALS: BP 133/81
--- NOTE | 2018-11-21 16:07 | NUR ---
PATIENT BECAME SEVERELY AGITATED. HAD PREVIOUSLY BEEN MEDICATED WITH 1400 THORAZINE. HOWEVER, PATIENT BECAME MORE COMBATIVE WITH STAFF, HITTIING, ATTEMPTING TO BITE STAFF. NEW ORDER FOR THORAZINE 25 MG IM AT 1430., ASSIST OF MULTIPLE NUMBER OF STAFF TO HOLD PATIENT'S ARMS AND LEGS, WHILE THIS NURSE ADMINISTERED INJECTION. CURRENTLY LYING SODEWAUYS IN BED, SLEEPING.
[2018-11-21 19:14] VITALS: BP 97/57
[2018-11-21 20:00] VITALS: BP 97/57
--- NOTE | 2018-11-21 23:18 | NUR ---
ASSUMED CARE OF THE PT AT 2315 PM. THE PT APPEARS TO BE RESTING QUIETLY IN BED AT THIS TIME. RESP., EVEN, AND UNLABORED. HEART RATE REGULAR. WHILE THE PT WAS BEING TURNED, THE PT BITE HIMSELF ON HIS LEFT HAND. THE WOUND WAS CLEANED AND A DRESSING WAS APPLIED. C/D/I AT THIS TIME. REMAINS ON 12 MINUTE CHECKS FOR HIS SAFETY.
--- NOTE | 2018-11-22 05:51 | NUR ---
the pt slept 1.2 hours last night.
--- NOTE | 2018-11-22 06:29 | NUR ---
Pt has 2 skin abrasions/tears on l top of hand. Cleaned and dressing applied. Nurse will pass on in report to day shift for dr, to further clarify orders during rounds.
[2018-11-22 07:48] VITALS: BP 134/98
[2018-11-22 08:00] VITALS: BP 134/98
--- NOTE | 2018-11-22 08:10 | NUR ---
HELPING PT OUT OF BED X3 STAFF. PT HITTING AND KICKING STAFF WITH CHANGE. PT INCON. OF BOWELS. PT HAS SKIN TEAR TO LEFT HAND. PT STATED HE NEEDED TO GO TO BATHROOM. PT UP TO W/C. PT ABLE TO FEED SELF WITH MINIMAL ASSISTANCE.
--- NOTE | 2018-11-22 09:52 | NUR ---
PT TALKING ABOUT ROAST BEEF ON THE FLOOR, AND WANTING NURSE TO HOLD HIS HAND. PT SCOOTING OUT OF W/C. PT ALSO STATED THAT WE NEED TO SEPARATE THE FISH. PT SEEING A RED FISH OUT OF THE WINDOW.
--- NOTE | 2018-11-22 11:22 | NUR ---
PT TRYING TO SLIDE OUT OF W/C. TAKING OFF HIS SHIRT.
--- NOTE | 2018-11-22 11:30 | NUR ---
QIANA COSTELLO IS HERE TO SEE PT.
--- NOTE | 2018-11-22 11:41 | NUR ---
I spoke with Andrés's son today and he informed me that he had a conversation witl the front office medical assistant at [facility]; the front office medical assistant declined admission for Andrés at this time due to his behaviors. I call [facility] at [phone] and spoke with Elia Summers. She confirmed that the front office medical assistant at the facility denied admission for Andrés due to his behaviors.
--- NOTE | 2018-11-22 12:04 | NUR ---
ADM ZYPREXA 5MG PO FOR AGGITATION. PT FEEDING SELF WITH A LITTLE BIT OF ASSISTANCE.
--- NOTE | 2018-11-22 13:10 | NUR ---
LAYING DOWN FOR A NAP, PT NEEDS ASSISTANCE WITH GETTING TO BED X2 PERSONS.
--- NOTE | 2018-11-22 15:30 | NUR ---
PT UP FROM NAP. PT WAS INCON. OF STOOL. NEEDED ASSISTANCE WITH CLEANING UP PT X2 PERSONS. GOT PT BACK UP TO W/C.
--- NOTE | 2018-11-22 16:46 | NUR ---
PT HAS BEEN SLIDING DOWN OUT OF W/C. NEEDING ASSISTANCE WITH PULLING PT UP IN W/C.
--- NOTE | 2018-11-22 16:47 | NUR ---
PT HAS BEEN EATING AND DRINKING WELL TODAY.
[2018-11-22 19:38] VITALS: BP 135/80
[2018-11-22 21:30] VITALS: BP 135/80
--- NOTE | 2018-11-22 23:30 | NUR ---
ASSUMED CARE AT 1900 PT LAYING IN BED. ASSESSMENT STARTED. AGRESSIVELY PULLS NURSE HANDS WHILE HOLDING. EVENING PO MEDS CRUSHED AND GIVEN IN APPLE SAUCE SALAZAR IT WELL. INCONTINENT. BED IN LOW POSITON AND BED ALRM ON WILL CONTINUE TO MONITOR
[2018-11-23 08:00] VITALS: BP 121/45
--- NOTE | 2018-11-23 10:27 | NUR ---
[id number]: Report rec from noc shift, care assumed. Pt awake, supine in bed, restless, combative, hitting staff when care given, pt incont of bowel in bed. Partial bed bath given, requires staff x3, due to combativeness. Pt dressed, transferred to yari-recliner, lap nilay in place.
[2018-11-23 10:58] VITALS: BP 121/45
--- NOTE | 2018-11-23 11:32 | NUR ---
While in the day room, Mr. Wolf's inquired about his bandages on his hands. She stated that they looked as if they had not been changed in days, noting that they appeared to be bleeding. NURSE ASSESSOR assured Mrs. Wolf that they had been changed yesterday afternoon as witnessed and in the presence of his son Eliecer. She requested that they be changed again by NURSE ASSESSOR who explained that changing bandaids was not in the NURSE ASSESSOR scope of practice but that a nurse would be informed of her request. Mrs. Wolf began speaking softly to the other 2 visitors that accompanied her. She spoke to them about Mr. Wolf being uncomfortable in the reclining chair and seemingly in pain. She stated to them, "I will just talk to Eliecer. He will call the doctor and then things will get done. I learned years ago that that is how it works."
[2018-11-23 19:39] VITALS: BP 148/67
--- NOTE | 2018-11-23 21:53 | NUR ---
NURSES NOTES - THIS NURSE ASSUMED CARE AT APPROXIMATELY 1900, DURING ASSESSMENT WHILE ATTEMPTING TO LISTEN TO LUNG SOUNDS PATIENT GRABBED THIS NURSES STETHOSCOPE AND ATTEMPTED TO STRIKE AT THIS NURSE. HE IS COOPERATIVE AT TIMES, BUT IS DIFFICULT FOR PATIENT TO VERBALIZE FEELINGS. HE DID NOT APPEAR TO BE IN ANY DISTRESS. HE DID NOT REPORT MEDICAL CONCERNS WITH NO S/S OF DISTRESS. NURSING WILL MAINTAIN ALL PRECAUTIONS TO ENSURE SAFETY AT ALL TIMES.
--- NOTE | 2018-11-24 03:45 | NUR ---
DOING ROUNDS AND OBSERVATION OF PATIENTS, IT APPEARS THAT PT BIT HIS LEFT THUMB, CLEANED WITH SALINE, MINIMAL INJURY OCCURED. WILL CONTINUE TO MONITOR.
--- NOTE | 2018-11-24 05:39 | NUR ---
PATIENT BECAME AGITATED TOWARDS STAFF, ATTEMPTING TO GET OUT OF BED, HIT STAFF, AND MAKING GESTURES TO BITE STAFF. ZYPREXA GIVEN PRN FOR SEVERE AGITATION. WILL CONTINUE TO MONITOR FOR SAFETY OF PATIENT ET STAFF.
--- NOTE | 2018-11-24 08:31 | NUR ---
PATIENT PHYSICALLY AGRESSIVE WITH ADL'S THIS A.M. WHILE BEING CLEANED UP FOR TRAMSFER TO W/C, PATIENT CONSTANTLY ATTEM PATIENT CONTINUED ABOVE BEHAVIOR, AND DID HIT HIT THIS NURSE, ALSO KICKED NURSE IN ABDOMEN, NO INJURIES TO STAFF. DR. HERRERA INTERVENED AND ASSISTED NURSES IN GETTING PATIENT UP IN W/C, TAKEN TO DR FOR BREAKFAST. EATING PER SELF, EATING WITH FINGERS, QUIET AT THIS TIME. WILL TRANSFER TO HOLLIE-CHAIR AFTER BREAKFAST.
[2018-11-24 10:27] VITALS: BP 149/85
--- NOTE | 2018-11-24 10:50 | NUR ---
DR. BUSTAMANTE INCREASED THORAZINE FROM 75 TO 100% DUE TO PATIENT'S BEHAVIOR THIS MORNING. PATIENT WAS HITTING, AND KICKING AT STAFF, RESISTING CARE. VERY IRRITABLE, AND AGITATED. PATIENT DID EAT MOST OF HIS BREASKFAST, TRANSFERED TO [facility] BREAKFAST TO PREVENT HIM FROM SLIDING OUT OF THE W/C. PATIENT IS CURRENTLY TAKING A NAP, WILL MONITOR FOR SAFETY.
--- NOTE | 2018-11-24 15:56 | NUR ---
SW sent a referral to [facility]. Pt was evaluated by Russell the Dba Manager. Russell mention that he will dictate the clinical notes, and follow-up on November 25, 2018.
--- NOTE | 2018-11-24 16:01 | NUR ---
SW was notified that pt slid on the floor. SW and nurse staff assisted pt into the chair.
--- NOTE | 2018-11-24 16:02 | NUR ---
SW contact Dr. Gonzáles pt DPOA concerning the referral to [facility]. Eliecer mention that he will follow-up with the [facility].
[2018-11-24 20:04] VITALS: BP 118/40
--- NOTE | 2018-11-24 21:45 | NUR ---
RECEIVED REPORT FROM OFFGOING DAY NURSES. ASSUMED CARE @ 19:00, IN BED. ALLOWED PHYSICAL ASSESSMENT TO BE COMPLETE. A&O TO SELF ONLY. CONFUSED AND COMBATITIVE WITH CARE. TOOK 2100 MEDS IN ICE CREAM, X2 ASSIST WITH MANAGING VIOLENCE BY PATIENT. BED IN LOW POSITION, DRY AND FOOT CREAM APPLIED. WILL CONITNUE TO MONITOR.
[2018-11-24 22:23] VITALS: BP 118/40
[2018-11-25 07:35] VITALS: BP 143/75
[2018-11-25 08:56] VITALS: BP 143/75
--- NOTE | 2018-11-25 12:04 | NUR ---
Date of Admission: 11/03/18 Date of Activity Therapy Assessment: 11/05/18 Activity Goal: Increase engagement Initial Goal: 1 Individual activity/day Weekly progress towards goal: Did not achieve goals Group participation level: Needs some assistance Behaviors observed: Patient continues to not meet goals d/t combative and aggressive behaviors. Pt did participate in sensory stimulation 1:1 session on 11/23. No combative/aggressive behaviors were noted. Plan: No change towards goal
--- NOTE | 2018-11-25 14:31 | NUR ---
Staff approached me saying that Andrés had blood on his fingers. No open cuts or wounds noted on his hands or fingers. Andrés did had trace amounts of blood on his L nare. I washed his hands to removed the blood.
--- NOTE | 2018-11-25 14:36 | NUR ---
1312: I was called to the ER to assess Freida for possible admission. Freida resides at [facility]. She is alert and oriented x 3. Freida's family is at bedside. Freida reported that she someone is trying to kill her. She is paranoid, reports having panic attacks, anxiety, depression and hallucinations. Family reported that she has been having tactile and olfactory hallucinations. Freida reported smelling something but could not identify the smell. Freida is up ad abiel with assist 1 - 2 and she use a walker. Dr. Newman was consulted and accepted Freida as a patient. See admit note and physician note for details.
--- NOTE | 2018-11-25 16:02 | NUR ---
PATIENT HAS BEEN RESISTIVE WITH CARES THIS MORNING. STAFF ASSISTED TO GET UP AND MET WITH AGGRESSION - ATTEMPTING TO HIT STAFF. SITUATED IN DINING AREA AND HAD POOR APPETITE FOR BREAKFAST AND LUNCH BUT ATE 75% OF HIS DINNER WITH HELP. MEDICATIONS HAVE BEEN DISPENSED CRUSHED AND TOLERATED WELL. PATIENT INCONTINENT - AND RESISTS CARES WHEN ADDRESSED.
--- NOTE | 2018-11-25 16:29 | NUR ---
ALEJANDRA called in a left voicemail for pt son Dr. Gonzáles concerning pt d/c. ALEJANDRA provided a contact, and asked for return call.
[2018-11-25 19:08] VITALS: BP 107/75
--- NOTE | 2018-11-25 21:31 | NUR ---
GIVEN 2100 MEDS IN ICE CREAM. ONLY BECAME PHYSICALLY COMBATITIVE WHEN INCONTINENT CARE PROVIDED. TOOK WASH CLOTH AWAY FROM STAFF AND THREW IT AT STAFF. HITTING AND GRABBING STAFF NOTED. WILL CONTINUE TO MONITOTR.
--- NOTE | 2018-11-26 01:47 | NUR ---
INCONTINENT CARE GIVEN, X3-4 ASSIST. COMBATITIVE AND HITTING, GRABBING, BITING STAFF AND BITING OWN L HAND. BROKE OPEN SCAB ON L HAND, DRESSING APPLIED. ROXINAL .25MG GIVEN SL. FOLLOW UP NOTED TO BE SLEEPING AND HAS A RELAXED BODY POSITION. BED ALARM ON. WILL CONTINUE TO DO 12 MINUTE ROUNDING FOR PATIENT SAFETY.
[2018-11-26 02:59] VITALS: BP 107/75
--- NOTE | 2018-11-26 06:36 | NUR ---
ROXINAL GIVEN PRIOR TO A.M. INCONTINENT CARE. SLEPT 7.4 HOURS OVERNIGHT. FOLLOW UP PAIN ASSESSMENT, PT SLEEPY AND AROUSABLE TO VOICE AND TOUCH, BUT TOO SLEEPY TO TAKE 0700 LEVOTHYROXINE 112MG AND PANTOPRAZOLE 40MG. P.O. WILL CONTINUE TO MONITOR.
--- NOTE | 2018-11-26 13:15 | NUR ---
[id number]: Report rec from noc shift, care assumed. Pt. sitting in yari-chair in DR, pt observed sliding down in chair, assisted back to bed via bety, assisted by staff x3. A.m. meal fed to pt by staff, appetite poor, consumed 3 bites of oatmeal, takes minimal fluids, meds crushed and given in pudding, tolerated well. Pt sleeps easily but arouses to verbal and tactile stimuli. Complete bedbath, shampoo cap, facial shave, and complete linen change done, pt attempts to grab staff's arms, hits with closed fist and curses at staff. Madi Gonzáles here, update given on meds and behavior. Dr. Newman here, update given.
[2018-11-26 14:53] VITALS: BP 131/73
[2018-11-26 20:00] VITALS: BP 103/60
--- NOTE | 2018-11-26 23:44 | NUR ---
PATIENT SLEEPING IN BED WITH EYES CLOSED. RESPIRATIONS AT 18. PULSE 80. PATIENT VOIDED X 1 AN HOUR AGO AND I AND SEWER BUILDER WASHED AND CLEANED RE AREA AND APPLIED SKIN BARRIER TO BOTTOM. NO SKIN ISSUES. PATIENT'S BED REPLACED WITH CLEAN PADS AND PATIENT REPOSITIONED. PATIENT SWINGING ARMS AT STAFF WHEN TRYING TO CLEAN AND MOVE PATIENT. SOFTLY SPOKE WITH PATIENT AND EXPLAINED EACH INTERVENTION WE DID. PATIENT IMMEDIATELY BACK TO SLEEP WHEN DONE. RESTING WELL.
[2018-11-27 00:01] VITALS: BP 103/60
--- NOTE | 2018-11-27 03:03 | NUR ---
PT SLEEPING. EYES CLOSED. RESPIRATIONS REGULAR AT 16 AND PULSE OF 80. FACE STILL APPEARS TENSE. SPOKE WITH DR HERRERA AND HE IS GOING TO REEVALUATE MORPHINE DOSE AND SPEAK WITH PHARMACY REGARDING APPROPRIATE DOSE INCREASES TO BE EFFECTIVE WITH PATIENT'S APPARENT DISCOMFORT SHOWING THROUGH BODY GESTURES/POSTURING/FACIAL EXPRESSIONS, BEHAVIORS AND PHYSIOLOGICAL FINDINGS WITH VITALS. PATIENT IS DRY AND REMAINS COVERED WITH SHEET AND NONSLIP SOCKS ON IN PLACE. CONTINUING TO MONITOR.
--- NOTE | 2018-11-27 04:31 | NUR ---
PATIENT SLEEPING CALMLY. FACE LOOKS RELAXED AND NO LONGER TENSE. PATIENT DRY AND NOT WET. RESPIRATIONS EVEN AND 16. CONTINUING TO MONITOR.
[2018-11-27 07:45] VITALS: BP 72/36
--- NOTE | 2018-11-27 12:28 | NUR ---
SON/DPOA PRAVIN HERE TO VISIT AT 1115-HE IS REQUESTING THAT SCHEDULED 1200 MORPHINE SULFATE BE HELD HE BELIEVES BILLIE IS "OVERMEDICATED" DISCUSSED WITH CLINICIAN Mat DOS SANTOS AND 1200 DOSE OF MORPHINE NOT ADMINISTERED.
--- NOTE | 2018-11-27 12:32 | NUR ---
HAS BEEN MINIMALLY RESISITVE WITH CARES TODAY-WILL OCCASSIONALLY GRAB THE WRIST OF NURSING STAFF DURING INCONTINENT CARE OR REPOSITIONING OR SWAT HAND IN DIRECTION OF STAFF. IS SOMULENT-ROUSABLE TO VERBAL STIMULI BUT QUICKLY RETURNS TO SLEEP-TAKES PO FLUIDS WITH COAXING AND ENCOURAGEMENT. REPOSITIONED Q 2 HOURS FOR COMFORT.TAKES MEDS CRUSHED IN PUDDING
[2018-11-27 19:27] VITALS: BP 149/76
--- NOTE | 2018-11-27 21:21 | NUR ---
ASSUMED CARE OF THE PT AT 191 PM. THE PT WAS LYING ON HIS RIGHT SIDE. ALERT ET CONFUSED. PICKING AT THE AIR. HE TOOK HIS MEDICATIONS IN YOGURT WITHOUT ANY DIFFICULTY. INCONT. X 1. REMAINS ON 12 MINUTE CHECKS FOR HIS SAFETY.
--- NOTE | 2018-11-27 23:30 | NUR ---
THE PT HAS BEEN TURNED EVERY 2 HOURS AT THIS TIME. AFTER TURNING HIM, HE GOES RIGHT BACK TO SLEEP. INCONTINENT OF URINE X 1. HE DID TAKE HIS MEDICATIONS EARLIER IN THE SHIFT CRUSHED IN YOGURT. DRESSING C/D/I TO HIS LEFT HAND. REMAINS ON 12 MINUTE CHECKS FOR HIS SAFETY.
--- NOTE | 2018-11-28 05:40 | NUR ---
THE PT SLEPT 12 HOURS LAST NIGHT.
[2018-11-28 07:40] VITALS: BP 94/50
--- NOTE | 2018-11-28 08:23 | NUR ---
[id number]: Report rec from noc shift, care assumed. Pt supine in bed, awakens readily to verbal and tactile stimuli, color pale, skin w/d, resp even/unlabored. Assisted by x2 staff, using bety lift to yari-chair, to DR for a.m. meal, fed by staff, appetite poor, consumed 5%, meds crushed and given with ice cream, cont on honey thick liquids w/o diificulty.
--- NOTE | 2018-11-28 11:56 | NUR ---
ALEJANDRA sent a referral to [facility]. SW sent a referral to [facility]. Sw will follow-up with the admission to see if pt will be accepted into the [facility].
[2018-11-28 19:33] VITALS: BP 141/76
[2018-11-28 21:39] VITALS: BP 141/76
--- NOTE | 2018-11-29 03:15 | NUR ---
PT REMAINS PERIODICALLY COMBATIVE WHEN STAFF IS PERFORMING PERSONAL CARE. ABLE TO GET 75% OF MEDS TAKEN WITH ICE CREAM, BEFORE HE REFUSED ANY MORE. SLEPT PRETTY WELL, BUT REMAINS RESTLESS.
--- NOTE | 2018-11-29 08:10 | NUR ---
PT DENIES ANY PAIN AT THIS TIME. PT SMILING AND WAVING AT STAFF. PT ABLE TO EAT BREAKFAST WITH ASSISTANCE. PT LUNGS CLEAR WITH SMALL AMT OF RHONCHI TO RLL. PT HAS NO COUGH. PT SITTING IN W/C WITH LAP HAI TO PREVENT SLIPPING OUT OF CHAIR. PT TOOK MEDS CRUSHED IN ENSURE PUDDING.
[2018-11-29 08:30] VITALS: BP 108/64
[2018-11-29 09:13] VITALS: BP 108/64
--- NOTE | 2018-11-29 10:16 | NUR ---
ALEJANDRA spoke with Lurdes Hernandez from [facility] concerning pt being evaluated. Lurdes mention that she will be visiting [facility] by 11:30am.
--- NOTE | 2018-11-29 11:19 | NUR ---
FAMILY IS VISITING.
--- NOTE | 2018-11-29 12:30 | NUR ---
LAID DOWN PT AFTER LUNCH, X2 ASSIST. PT UNABLE TO HELP WITH TRANSFER.
--- NOTE | 2018-11-29 14:53 | NUR ---
PT AWAKE AND TOOK 1400 MEDS IN ICE CREAM. PT ATE 1/2 OF ICE CREAM.
--- NOTE | 2018-11-29 16:10 | NUR ---
SW observed the pt to be sleeping in his room. SW spoke with the pt, and the pt mumble some words. Pt did not response with eye contact but with sound. Pt had a visitor from [facility].
--- NOTE | 2018-11-29 16:12 | NUR ---
ALEJANDRA spoke with Dr. Gonzáles pt son concerning pt being appropriate for hospice. Eliecer mention that he would like to schedule an consult. ALEJANDRA will call to a hospice provider for the pt on November 30, 2018.
--- NOTE | 2018-11-29 16:30 | NUR ---
ALEJANDRA and Dr. Newman spoke with son Eliecer concerning his father being d/c on November 30, 2018. ALEJANDRA mention that pt has been accepted into [facility]. ALEJANDRA mention that Lurdes from [facility] will not be able to accept pt due to him being a restraimt, and the lethality of his medication. Eliecer mention that he will be going to speak with Russell from the [facility] concerning d/c on tomorrow. Eliecer mention he will be taking off of work to be attentive to his father care. Eliecer mention that he will contact ALEJANDRA or Dr. newman this evening.
--- NOTE | 2018-11-29 17:00 | NUR ---
PT UP IN W/C FOR DINNER. PT ABLE TO TAKE CUP AND DRINK, PT NEEDS ASSISTANCE WITH FEEDING. PT TOLERATING THICKEN LIQUIDS. PT HAD LARGE INCON. VOID PRIOR TO GETTING UP IN W/C.
--- NOTE | 2018-11-29 19:42 | NUR ---
MAGGI Slater contacted regarding information received in report that [facility] had discussed discontinuing oral hyperglycemia agents, but the orders were not put in. Pt has been having decrease in meal intake. MAGGI stated she will review.
[2018-11-29 19:47] VITALS: BP 125/73
--- NOTE | 2018-11-29 21:45 | NUR ---
Pt resting in bed upon arrival to shift. Pt awakened to take medications. Pt not resistive to fsbs. Pt sleeping during interactions with staff.
--- NOTE | 2018-11-30 05:58 | NUR ---
INCONTINENT X 1, PT WAS NOT COMBATIVE OR RESISTANT WITH ADL CARE, HE SMILED, TOLD NURSE SHE WAS BEAUTIFUL, ASSISTED WITH HOLDING ON SIDE RAILS.
--- NOTE | 2018-11-30 07:32 | NUR ---
PRAVIN CALLED AND STATED HIS PLAN IS TO GET HIS FATHER HOME AND TO LET TEACHER OF THE DEAF AND DR. HERRERA KNOW.
[2018-11-30 08:00] VITALS: BP 95/71
--- NOTE | 2018-11-30 08:40 | NUR ---
PT EATING BREAKFAST. SPEECH THERAPY HERE TO WORK WITH PATIENT. PT TOLERATING THICKEN LIQUIDS AT THIS TIME. PT ABLE TO DRINK FROM CUP. PT COMPLIANT WITH ASSESSMENT. PT UP IN W/C. PT SAYING THANK YOU TO STAFF FOR HELPING WITH BREAKFAST TRAY.
[2018-11-30 08:57] VITALS: BP 95/71
[2018-11-30] MEDS ORDERED: MSL20MG/ML SUBLING (11:29)
[2018-11-30] MEDS ORDERED: DEPAKOTE SPRIN125 MG PO (11:30)
[2018-11-30] MEDS ORDERED: LORAZEPAM I2 MG/1 M2 SUBLING (11:31)
[2018-11-30] MEDS ORDERED: CHLORPROMAZINE25 M3 PO (11:31)
--- NOTE | 2018-11-30 12:25 | NUR ---
NOTIFIED DR. PRAVIN BOWER ABOUT TRANSPORT WILL BE HERE AT 2 PM AND TO LET HIM KNOW ABOUT GOING OVER DISCHARGE INFORMATION. SON AGREED AND STATED HE WILL TRY TO BE HERE FOR D/C INSTRUCTIONS.
[2018-11-30 12:51] VITALS: BP 95/71
--- NOTE | 2018-11-30 12:51 | NUR ---
Patient Name: BILLIE BOWER Admission Date: 11/03/18 DISCHARGE PLAN: Pt will be discharging home. Care Assessment: Pt was assessed by Dr. Newman, and diagnosed with major Neurocognitive Disorder. Level II Assessment: none Transportation: Pt will be transported by [facility]. Special Instructions/Notes: Pt will need a memory care placement. Pt will need assistance with his ADL's and care 11/01. Pt will not be allowed to be left alone at home. DISCHARGE TO FACILITY: Home Facility: Phone: Fax: Address: [address] [place] [address] Contact Name: Phone: PCP: Primary Doctor Psychiatrist: Primary Psychiatrist
--- NOTE | 2018-11-30 13:45 | NUR ---
GAVE DISCHARGE INSTRUCTIONS TO PRAVIN WHEN HE ARRIVED. SON VERBALY UNDERSTOOD D/C ORDERS. PT IN W/C READY TO TRANSPORT TO HOME. PT WAS CLEANED AND DRY DIAPER PLACED ON HIM.
--- NOTE | 2018-11-30 14:10 | NUR ---
PT LEFT VIA W/C TRANSPORTATION IN FAIR CONDITION.
== END 2018-11-30 14:10 | disposition home or self-care (01) | DRG 56 ==
LOC: SBH
PROVIDERS: ADMIT Psychiatry & Neurology Psychiatry
DX: G30.9 Alzheimer's disease, unspecified (principal); E43 Unspecified severe protein-calorie malnutrition; F01.51 Vascular dementia, unspecified severity, with behavioral disturbance; F02.81 Dementia in other diseases classified elsewhere, unspecified severity, with behavioral disturbance; B48.8 Other specified mycoses; Z68.45 Body mass index [BMI] 70 or greater, adult; E11.9 Type 2 diabetes mellitus without complications; I10 Essential (primary) hypertension; K27.9 Peptic ulcer, site unspecified, unspecified as acute or chronic, without hemorrhage or perforation; E03.9 Hypothyroidism, unspecified; Z79.899 Other long term (current) drug therapy
CPT/HCPCS: 10880